=== PATIENT | female | born 2005 | race Caucasian/White ===

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

== ENCOUNTER 2023-01-22 02:43 | Emergency (ER) | payer OTHER, SELFPAY ==
--- NOTE | ~2023-01-22 | XR_ITS ---
EXAMINATION: XR chest 1V portable 01/22/2023 03:22 INDICATION: Left-sided chest pain PROCEDURE: AP portable chest COMPARISON: Comparison to multiple prior studies sequentially, with oldest reviewed study dated 08/23. FINDINGS: The lungs are clear. The cardiomediastinal silhouette is within normal limits. There are no pleural effusions. There is no pneumothorax suspected. IMPRESSION: 1: NO ACUTE CARDIOPULMONARY DISEASE. Reviewed, dictated and finalized at location A.
[2023-01-22 02:45] VITALS: TEMP 37.1
[2023-01-22 02:56] VITALS: BP 178/84; PULSE 84; PULSE 87; RESP 14; TEMP 37.1; O2SAT 100
--- NOTE | 2023-01-22 03:01 | ECG_ITS ---
Measurements Intervals [place] Rate: 82 P: 34 [place]: 179 QRS: 106 QRSD: 101 T: 56 QT: 345 QTc: 405 Interpretive Statements SINUS RHYTHM MINOR RV CONDUCTION ABNORMALITY BORDERLINE ECG COMPARED TO ECG 09/14/2022 09:39:11 NO SIGNIFICANT CHANGE Electronically Signed On 01-22-2023 8:29:13 CDT by Olegario Nogueira M.D.
--- NOTE | 2023-01-22 04:14 | ED.GENADULT ---
HPI - General Adult General Chief complaint: Chest Pain Stated complaint: CP AND ARM NUMBNESS Time Seen by Provider: 01/22/23 02:50 History of Present Illness HPI narrative: Patient is a 17-year-old female who presents the emergency department with chief complaint of chest pain patient reports that she is with feeling flushed dizziness and feeling anxious the patient states start about 15 minutes prior to arrival reports that she has history of POTS anxiety and has history of low iron. Patient states that she took her lorazepam this evening but did not have any improvement in her symptoms prior to arrival. Related Data Home Medications Medication Instructions Recorded Confirmed lorazepam 0.5 mg tablet 0.5 mg PO DAILY PRN Anxiety 09/15/22 09/29/22 Allergies Allergy/AdvReac Type Severity Reaction Status Date / Time latex Allergy Unknown RASH Verified 01/22/23 02:55 Review of Systems Review of Systems: A 10 system review of systems was completed on the patient and is negative except for what is stated in the HPI. Nursing and ancillary documentation was reviewed. PMFSH Past Medical History Medical History Anxiety 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 Surgical History Surgical History Delivery by section (04/27/22) primary c/s Arrest of Descent History of tonsillectomy age 6/7 Family History Family History Grandparent Diabetes mellitus both grandmothers Cerebrovascular accident paternal grandfather Carcinoma of colon maternal grandmother Hypertension maternal grandmother Sibling Asthma Social History Social History Smoking packs per day: 0.1 Smoking cigarettes per day: 2.0 Years smoked: 5 Smoking pack-years: 0.50 Smoking status: Current every day smoker Tobacco type: e-cigarettes/vaping Second hand tobacco smoke exposure: Yes Smoking end date: 05/04/21 Alcohol intake: current Drinks per week: 0 Substance use: never Substance use type: does not use Lack of Transportation: No Lack of Food: Never True Current Housing: Decline to Answer Concerned About Future Housing: No Difficulty Paying Gas/Electric Bills: No Difficulty Paying for Meds: No Currently Unemployed: No Education: Grade School Difficulty w/ Childcare or Family Care: No Living arrangements: other Additional living arrangements comments: Occupation/Education: occupation 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 HEAD: Normocephalic, atraumatic. EYES: PERRLA and EOMI. ENT: Nares clear, no rhinorrhea or epistaxis. Mucous membranes moist. NECK: Supple. CHEST: Clear to auscultation. No respiratory distress. HEART: Regular rate and rhythm. No murmur heard. Normal peripheral pulses. ABDOMEN: Soft, nontender, nondistended, normal active bowel sounds. EXTREMITIES: Normal range of motion. No edema. SKIN: Warm, dry, no rash. NEURO: No focal deficits. Alert and oriented x3. PSYCH: Normal mood and affect. Course Vital Signs Vital signs: Vital Signs Temperature 37.1 C 01/22/23 02:45 Temperature 37.1 C 01/22/23 02:56 Pulse Rate 66 01/22/23 04:40 Respiratory Rate 20 01/22/23 04:40 Blood Pressure 148/74 H 01/22/23 04:40 Pulse Oximetry 97 01/22/23 04:40 Medical Decision Making MDM Narrative Medical decision making narrative: Differential diagnosis includes PE, ACS, e
[2023-01-22 04:21] LABS: Basophils Percent Auto 0.4 % (0.2-1.2); Eosinophils Absolute Auto 0.1 K/mm3 (0-0.3); Eosinophils Percent Auto 0.6 % (0-4.4); Hematocrit 38.5 % (37.0-47.0); Hemoglobin 11.3 g/dL (12.0-15.0); Immature Granulocyte Absolute 0.03 K/mm3 (0.00-0.031); Immature Granulocyte Percent A 0.4 % (0-0.5); Lymphocytes Absolute Auto 1.68 K/mm3 (0.9-3.2); Lymphocytes Percent Auto 21.2 % (18.3-44.2); Mean Corpuscular HGB Conc 29.4 g/dl (32-36); Mean Corpuscular Hemoglobin 23.3 pg (26-34); Mean Corpuscular Volume 79.2 fl (80-100); Mean Platelet Volume 9.7 fl (7.4-10.4); Monocytes Absolute Auto 0.6 K/mm3 (0.1-0.6); Monocytes Percent Auto 7.1 % (2.6-8.5); Neutrophils Absolute Auto 5.6 K/mm3 (1.3-6.7); Neutrophils Percent Auto 70.3 % (45.5-73.1); Platelet Count Result 306 k/mm3 (150-375); Red Blood Count 4.86 M/mm3 (4.2-5.4); Red Cell Distribution Width 15.6 % (11.5-14.5); White Blood Count 7.9 K/mm3 (4.5-10.0)
[2023-01-22 04:22] LABS: Appearance Urine Clear (Clear); Bilirubin Urine Negative (Negative); Blood Urine Negative (Negative); Color Urine Yellow (Yellow); Glucose Urine UA Negative (Negative); Ketones Urine Negative (Negative); Leukocyte Esterase Ur Negative LEU/UL (Negative); Nitrate Urine Negative (Negative); Protein Urine Negative (Negative); Specific Grav Ur 1.005 (1.001-1.035); Urobilinogen Urine 0.2 mg/dL (<2.0)
[2023-01-22 04:31] LABS: INR 0.9; Prothrombin Time 12.6 Seconds (11.1-14.7)
[2023-01-22 04:32] LABS: Partial Thromboplastin Time 29.9 SECONDS (22.3-36.8)
[2023-01-22 04:35] LABS: Add Urine Microscopic? NO; D Dimer 0.42 ug/mL (<0.48)
[2023-01-22 04:40] VITALS: BP 148/74; PULSE 66; RESP 20; O2SAT 97
[2023-01-22 04:42] LABS: Lactic Acid Reflex 1.8 mmol/L (0.7-2.0)
[2023-01-22 04:43] LABS: Alanine Aminotransferase 19 U/L (6-35); Albumin Level 4.3 g/dL (3.7-5.6); Alkaline Phosphatase 98 U/L (45-116); Anion Gap 10 mmol/L (8-16); Aspartate Amino Transferase 20 U/L (14-36); Bilirubin,Total 0.5 mg/dL (0.2-1.3); Blood Urea Nitrogen 11 mg/dL (8-21); Calcium 9.1 mg/dL (8.9-10.7); Carbon Dioxide 25 mmol/L (22-30); Chloride 105 mmol/L (98-107); Estimated CRCL calculation 184 ml/min; Estimated Glomerular Filt Rate > 60; Glucose 115 mg/dL (65-110); Lipase 45 U/L (23-300); Magnesium 2.1 mg/dL (1.6-2.3); Potassium 3.5 mmol/L (3.4-5.0); Sodium 140 mmol/L (134-143)
[2023-01-22 04:50] LABS: Amphetamine Screen Urine Negative (Negative); Barbiturate Screen Urine Negative (Negative); Benzodiazepines Screen Urine Negative (Negative); Cannabinoid Screen Urine Negative (Negative); Cocaine Screen Urine Negative (Negative); Methadone Screen Urine Negative (Negative); Opiate Screen Urine Negative (Negative); Phencyclidine Screen Urine Negative (Negative)
[2023-01-22 04:55] LABS: Troponin I < 0.012 ng/mL (0.000-0.034)
[2023-01-22 05:42] VITALS: BP 147/86; PULSE 78; RESP 20; O2SAT 98
== END 2023-01-22 05:41 | disposition home or self-care (01) ==
PROVIDERS: Emergency Provider Emergency Medicine; PCP Family Medicine
DX: R07.89 Other chest pain (principal); R42 Dizziness and giddiness; R55 Syncope and collapse; F41.9 Anxiety disorder, unspecified; A18.01 Tuberculosis of spine; Z87.891 Personal history of nicotine dependence
CPT/HCPCS: 36415; 71045; 80053; 80307; 81003; 81025; 83605; 83690; 83735; 84484; 85025; 85380; 85610; 85730; 93005; 99284

== ENCOUNTER 2023-06-11 14:56 | Emergency (ER) | payer OTHER, SELFPAY ==
[2023-06-11 15:02] VITALS: BP 144/67; PULSE 91; RESP 20; TEMP 37.4; O2SAT 100
--- NOTE | 2023-06-11 15:28 | ED.URI ---
HPI - URI/Sore Throat General Chief Complaint: Upper Respiratory Infection Stated Complaint: cough/throat Time Seen by Provider: 06/11/23 15:29 Source: patient, RN notes reviewed and old records reviewed Mode of arrival: ambulatory Limitations: no limitations History of Present Illness HPI Narrative: 18 year old female presents to [facility] care with complaints of 2 week history of sore throat, dry cough, post nasal drainage that won't go away. Patient reports that she has taken Mucinex and flu medications along with throat numbing spray. Patient reports that she has had intermittent low grade fevers, Patient reports that cough is getting worse at night, is dry and hacky. Patient reports some sinus pressure denies any headache, body aches or any ear pain. MD elicited complaint: fever (low grade), cough, sore throat, rhinorrhea and nasal congestion Pertinent past history: sinusitis Onset (ago): week(s) (2) Severity: moderate Able to tolerate fluids by mouth: Yes Treatments prior to arrival: other (Mucinex, flu med, throat numbing spray.) Related Data Home Medications Medication Instructions Recorded Confirmed citalopram 20 mg tablet 20 mg PO DAILY 06/11/23 06/11/23 lorazepam 0.5 mg tablet 0.5 mg PO BID PRN Anxiety 06/11/23 06/11/23 Allergies Allergy/AdvReac Type Severity Reaction Status Date / Time latex Allergy Unknown RASH Verified 06/11/23 15:23 Review of Systems Review of Systems: CONSTITUTIONAL: Denies malaise, chills, sweats,positive for low grade fever. EYES: Denies visual changes, redness, or discharge. ENT: Reports rhinorrhea, congestion, sinus pain, no otalgia and positive for sore throat. CARDIOVASCULAR: Denies chest pain, palpitations, or edema. RESPIRATORY: Reports cough.? Denies dyspnea. GASTROINTESTINAL: Denies abdominal pain, nausea, vomiting, diarrhea SKIN: Denies rash or itching. MUSCULOSKELETAL: Denies myalgia. NEUROLOGIC: Denies headache. All systems reviewed & are unremarkable except as noted in HPI and below PMFSH Past Medical History Medical History Anxiety 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 Surgical History Surgical History Delivery by section (04/27/22) primary c/s Arrest of Descent History of tonsillectomy age 6/7 Family History Family History Grandparent Diabetes mellitus both grandmothers Cerebrovascular accident paternal grandfather Carcinoma of colon maternal grandmother Hypertension maternal grandmother Sibling Asthma Social History Social History (Updated 06/12/23 @ 15:07 by Erendira Perez NP) Smoking packs per day: 0.1 Smoking cigarettes per day: 2.0 Years smoked: 5 Smoking pack-years: 0.50 Smoking status: Former smoker Tobacco type: e-cigarettes/vaping Second hand tobacco smoke exposure: Yes Smoking end date: 05/04/21 Alcohol intake: current Drinks per week: 0 Substance use: never Substance use type: does not use Lack of Transportation: No Lack of Food: Never True Current Housing: Decline to Answer Concerned About Future Housing: No Difficulty Paying Gas/Electric Bills: No Difficulty Paying for Meds: No Currently Unemployed: No Education: Grade School Difficulty w/ Childcare or Family Care: No Living arrangements: other Additional living arrangements comments: Occupation/Education: occupation 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 There is no rele
== END 2023-06-11 15:45 | disposition home or self-care (01) ==
PROVIDERS: Emergency Provider Registered Nurse; PCP Family Medicine
DX: J32.9 Chronic sinusitis, unspecified (principal); F41.9 Anxiety disorder, unspecified
CPT/HCPCS: 87081; 87880; 99213; G0463

== ENCOUNTER 2023-08-08 18:28 | Emergency (ER) | payer OTHER, SELFPAY ==
[2023-08-08 18:28] VITALS: BP 147/79; PULSE 90; RESP 18; TEMP 36.1; O2SAT 99
--- NOTE | 2023-08-08 18:29 | ED.FEMALEGU ---
HPI - Female Genitourinary General Chief complaint: Urogenital-Female Stated complaint: Vaginal Bleeding Time Seen by Provider: 08/08/23 18:29 Source: patient Mode of arrival: ambulatory Limitations: no limitations History of Present Illness HPI Narrative: Patient is a 18-year-old female with bright red blood per vagina after intercourse yesterday and today. She has some tenderness of the vagina since intercourse. She also has some suprapubic discomfort. She is not due for her menstrual cycle at this time. elicited complaint: vaginal bleeding Onset (ago): day(s) (2) Location of symptoms: suprapubic Severity: mild Female Urogenital Radiation: Non-Radiating Severity scale (1-10): 2 Quality of pain: cramping Consistency: intermittent Vaginal discharge: none Vaginal bleeding: moderate, heavy and bright red Exacerbating factors: other ( Started with intercourse) Relieving factors: none Associated symptoms: denies other symptoms Treatment prior to arrival: none Sexual activity: Yes and New Sexual Partners Possible : unsure if Related Data Home Medications Medication Instructions Recorded Confirmed citalopram 20 mg tablet 20 mg PO DAILY 06/11/23 08/08/23 lorazepam 0.5 mg tablet 0.5 mg PO BID PRN Anxiety 06/11/23 08/08/23 Allergies Allergy/AdvReac Type Severity Reaction Status Date / Time latex Allergy Unknown RASH Verified 08/08/23 18:33 Review of Systems Review of Systems: All systems reviewed & are unremarkable except as noted in HPI and below Constitutional: Constitutional: Reports no additional constitutional complaints Eyes: Eyes: Reports no additional eye complaints ENT: Reports system reviewed and no additional complaints, except as documented Cardiovascular: Cardiovascular: Reports no additional cardiovascular complaints Respiratory: Respiratory: Reports no additional respiratory complaints Gastrointestinal: Gastrointestinal: Reports no additional gastrointestinal complaints Genitourinary: Genitourinary: Reports no additional female genitourinary complaints Musculoskeletal: Musculoskeletal: Reports no additional musculoskeletal complaints Integumentary/Breasts: Skin/Breast: Reports system reviewed and no additional complaints, except as docu Neurologic: Reports system reviewed and no additional complaints, except as documented Psychiatric: Psychiatric: Reports no additional psychiatric complaints Endocrine: Endocrine: Reports no additional endocrine complaints Hematologic/Lymphatic: Hematologic/Lymphatic: Reports no additional hematologic/lymphatic complaints Allergic/Immunologic: Allergic/Immunologic: Reports no additional allergic/immunologic complaints PMFSH Past Medical History Medical History Anxiety 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 Surgical History Surgical History Delivery by section (04/27/22) primary c/s Arrest of Descent History of tonsillectomy age 6/7 Family History Family History Grandparent Diabetes mellitus both grandmothers Cerebrovascular accident paternal grandfather Carcinoma of colon maternal grandmother Hypertension maternal grandmother Sibling Asthma Social History Social History Smoking packs per day: 0.1 Smoking cigarettes per day: 2.0 Years smoked: 5 Smoking pack-years: 0.50 Smoking status: Former smoker Tobacco type: e-cigarettes/vaping Second hand tobacco smoke exposure: Yes Smoking end date: 05/04/21 Alcohol intake: current Drinks per week: 0 Substance use: never Substance use type: does not use Lack of Transportation: No Lack of Food: Never True Current Housing: Decline to Answer Concerned About Future Cindy
[2023-08-08 19:13] LABS: Appearance Urine Sl Cloudy (Clear); Bilirubin Urine 1+ (Negative); Blood Urine 3+ (Negative); Color Urine Yellow (Yellow); Glucose Urine UA Negative (Negative); Ketones Urine 1+ (Negative); Leukocyte Esterase Ur Trace LEU/UL (Negative); Nitrate Urine Negative (Negative); Protein Urine Trace (Negative); Specific Grav Ur 1.025 (1.010-1.020)
--- NOTE | 2023-08-08 19:13 | PC.NURSE ---
report from arline salgado. introduced self to pt. no needs at this time. awaiting lab/urine results . call hebert in reach
[2023-08-08 19:19] LABS: Add Urine Microscopic? YES; Bacteria Urine 1+ /hpf; Pregnancy On Board Control Positive; RBC Urine >75 /hpf (0-2); Squamous Epithelial Cell Urine Few /hpf (Few); Urine Pregnancy Test Negative
[2023-08-08] MEDS: CEPHALEXIN 500 MG CAPSULE PO (19:55)
[2023-08-08 19:56] VITALS: BP 130/92; PULSE 84; RESP 20; TEMP 36.9; O2SAT 95
[2023-08-10 08:45] LABS: Chlamydia trachomatis NOT DETECTED (NOT DETECTE); Neisseria gonorrhoeae PCR NOT DETECTED (NOT DETECTE)
== END 2023-08-08 19:56 | disposition home or self-care (01) ==
PROVIDERS: Emergency Provider Emergency Medicine; PCP Family Medicine
DX: N30.01 Acute cystitis with hematuria (principal); F41.9 Anxiety disorder, unspecified; Z87.891 Personal history of nicotine dependence
CPT/HCPCS: 81001; 81025; 87491; 87591; 99283; A9270

== ENCOUNTER 2023-08-29 08:06 | Emergency (ER) | payer OTHER, SELFPAY ==
[2023-08-29 08:06] VITALS: BP 138/84; PULSE 77; RESP 16; TEMP 36.4; O2SAT 100
--- NOTE | 2023-08-29 08:12 | ED.URI ---
HPI - URI/Sore Throat General Chief Complaint: Upper Respiratory Infection Stated Complaint: sore throat Time Seen by Provider: 08/29/23 08:11 Source: patient Mode of arrival: ambulatory Limitations: no limitations History of Present Illness HPI Narrative: Patient is a 18-year-old female with a sore throat for the past 2 days. She said she is having difficulty swallowing due to the pain. No fever or chills. MD elicited complaint: sore throat Pertinent past history: other ( Recurrent strep throat) Onset (ago): day(s) (2) Consistency: constant Severity: moderate Pain scale (0-10): 6 Description of mucous: clear and yellow Able to tolerate fluids by mouth: Yes Exacerbating factors: nothing Relieving factors: nothing Associated symptoms: denies other symptoms Treatments prior to arrival: none Related Data Home Medications Medication Instructions Recorded Confirmed citalopram 20 mg tablet 20 mg PO DAILY 06/11/23 08/29/23 lorazepam 0.5 mg tablet 0.5 mg PO BID PRN Anxiety 06/11/23 08/29/23 Allergies Allergy/AdvReac Type Severity Reaction Status Date / Time latex Allergy Unknown RASH Verified 08/29/23 08:10 Review of Systems Review of Systems: All systems reviewed & are unremarkable except as noted in HPI and below Constitutional: Constitutional: Reports no additional constitutional complaints Eyes: Eyes: Reports no additional eye complaints ENT: Reports system reviewed and no additional complaints, except as documented Cardiovascular: Cardiovascular: Reports no additional cardiovascular complaints Respiratory: Respiratory: Reports no additional respiratory complaints Gastrointestinal: Gastrointestinal: Reports no additional gastrointestinal complaints Genitourinary: Genitourinary: Reports no additional female genitourinary complaints Musculoskeletal: Musculoskeletal: Reports no additional musculoskeletal complaints Integumentary/Breasts: Skin/Breast: Reports system reviewed and no additional complaints, except as docu Neurologic: Reports system reviewed and no additional complaints, except as documented Psychiatric: Psychiatric: Reports no additional psychiatric complaints Endocrine: Endocrine: Reports no additional endocrine complaints Hematologic/Lymphatic: Hematologic/Lymphatic: Reports no additional hematologic/lymphatic complaints Allergic/Immunologic: Allergic/Immunologic: Reports no additional allergic/immunologic complaints PMFSH Past Medical History Medical History Anxiety 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 Surgical History Surgical History Delivery by section (04/27/22) primary c/s Arrest of Descent History of tonsillectomy age 6/7 Family History Family History Grandparent Diabetes mellitus both grandmothers Cerebrovascular accident paternal grandfather Carcinoma of colon maternal grandmother Hypertension maternal grandmother Sibling Asthma Social History Social History Smoking packs per day: 0.1 Smoking cigarettes per day: 2.0 Years smoked: 5 Smoking pack-years: 0.50 Smoking status: Former smoker Tobacco type: e-cigarettes/vaping Second hand tobacco smoke exposure: Yes Smoking end date: 05/04/21 Alcohol intake: current Drinks per week: 0 Substance use: never Substance use type: does not use Lack of Transportation: No Lack of Food: Never True Current Housing: Decline to Answer Concerned About Future Housing: No Difficulty Paying Gas/Electric Bills: No Difficulty Paying for Meds: No Currently Unemployed: No Education: Grade School Difficulty w/ Childcare or Family Care: No Living arrangements: other Additional living arrangements comments: mar
[2023-08-29 08:26] LABS: Appearance Urine Sl Cloudy (Clear); Bilirubin Urine Negative (Negative); Blood Urine Negative (Negative); Color Urine Light Yellow (Yellow); Glucose Urine UA Negative (Negative); Ketones Urine Negative (Negative); Leukocyte Esterase Ur Trace LEU/UL (Negative); Nitrate Urine Negative (Negative); Protein Urine Negative (Negative); Specific Grav Ur 1.015 (1.010-1.020); Urobilinogen Urine 0.2 mg/dL (0.2-1.0)
[2023-08-29 08:31] LABS: Add Urine Microscopic? YES; Bacteria Urine Trace /hpf; RBC Urine None seen /hpf (0-2); Squamous Epithelial Cell Urine Few /hpf (Few); WBC Urine 0-3 /hpf (0-3)
[2023-08-29 08:32] LABS: Pregnancy On Board Control Positive; Urine Pregnancy Test Negative
[2023-08-29 08:42] LABS: Strep Group A RT-PCR NOT DETECTED (Negative)
== END 2023-08-29 08:55 | disposition home or self-care (01) ==
LOC: CHSED 08:53
PROVIDERS: Emergency Provider Emergency Medicine; PCP Family Medicine
DX: J02.8 Acute pharyngitis due to other specified organisms (principal); F41.9 Anxiety disorder, unspecified; Z87.891 Personal history of nicotine dependence
CPT/HCPCS: 81001; 81025; 87651; 99283

== ENCOUNTER 2023-09-21 19:54 | Emergency (ER) | payer OTHER, SELFPAY ==
--- NOTE | ~2023-09-21 | CT_ITS ---
EXAMINATION: CT abdomen pelvis w con DATE: 09/21/2023 21:30 INDICATION: Abdominal pain TECHNIQUE: Computed tomography (CT) of the abdomen and pelvis was performed without intravenous contr ast. Automated exposure control and iterative reconstruction technique were employed. The dose-length product was 1679.64 mGy-cm. COMPARISON: 09/14/2022 FINDINGS: No interval change in likely benign 3 mm nodule in the right lower lobe. Heart size is normal. No per icardial or pleural effusion. Liver, gallbladder, spleen, pancreas, bilateral adrenal glands and kidn eys are normal. Bladder, anteverted uterus and bilateral adnexa are unremarkable. Unchanged fatty inf iltration of the wall of the rectum which could be related to body habitus or sequela of chronic infl ammation. Bowels are otherwise unremarkable including a normal appendix. No free intraperitoneal gas or fluid. No pathologically enlarged abdominal or pelvic lymphadenopathy. Chronic mild anterior wedgi ng at T11-L1. Mild to moderate spondylosis and several Schmorl's nodes in the lower thoracic and uppe r lumbar spine. IMPRESSION: 1. No acute intra-abdominal/pelvic process. Reviewed, dictated and finalized at location A.
[2023-09-21 20:00] VITALS: BP 153/99; PULSE 78; RESP 18; TEMP 36.8; O2SAT 100
--- NOTE | 2023-09-21 20:01 | ECG_ITS ---
Test Date: 2023-09-21 20:18:37 Measurements Intervals [place] Rate: 75 P: 48 [place]: 156 QRS: 104 QRSD: 94 T: 64 QT: 357 QTc: 401 Interpretive Statements SINUS RHYTHM RIGHT AXIS DEVIATION [QRS AXIS > 100] LOW QRS VOLTAGE IN PRECORDIAL LEADS [QRS DEFLECTION < 1.0 mV IN CHEST LEADS] ABNORMAL ECG No previous ECG available for comparison Electronically Signed On 09-22-2023 11:02:49 CDT by Trey Saucedo M.D.
--- NOTE | 2023-09-21 20:05 | ED.ABDPAIN ---
HPI - Abdominal Pain General Chief Complaint: Abdominal Pain Stated Complaint: Upper Abd Pain Time Seen by Provider: 09/21/23 20:00 Source: patient Mode of arrival: ambulatory Limitations: no limitations History of Present Illness HPI narrative: this is a 18-year-old female with having pain for the last week off and on crampy with some nausea currently no vomiting no fever chills no chest pain shortness of breath. Patient states she has a history of IBS and there was no hematochezia no flank pain denies dysuria or hematuria MD elicited complaint: abdominal pain Pertinent past history: none Onset (ago): week(s) Pain Consistency: intermittent Location: periumbilical Severity: mild Quality: cramping Associated symptoms: nausea Related Data Home Medications Medication Instructions Recorded Confirmed citalopram 20 mg tablet 20 mg PO DAILY 06/11/23 09/21/23 lorazepam 0.5 mg tablet 0.5 mg PO BID PRN Anxiety 06/11/23 09/21/23 Allergies Allergy/AdvReac Type Severity Reaction Status Date / Time latex Allergy Unknown RASH Verified 08/29/23 08:10 Review of Systems Review of Systems: All systems reviewed & are unremarkable except as noted in HPI and below PMFSH Past Medical History Medical History Anxiety 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 Surgical History Surgical History Delivery by section (04/27/22) primary c/s Arrest of Descent History of tonsillectomy age 6/7 Family History Family History Grandparent Diabetes mellitus both grandmothers Cerebrovascular accident paternal grandfather Carcinoma of colon maternal grandmother Hypertension maternal grandmother Sibling Asthma Social History Social History Smoking packs per day: 0.1 Smoking cigarettes per day: 2.0 Years smoked: 5 Smoking pack-years: 0.50 Smoking status: Former smoker Tobacco type: e-cigarettes/vaping Second hand tobacco smoke exposure: Yes Smoking end date: 05/04/21 Alcohol intake: current Drinks per week: 0 Substance use: never Substance use type: does not use Lack of Transportation: No Lack of Food: Never True Current Housing: Decline to Answer Concerned About Future Housing: No Difficulty Paying Gas/Electric Bills: No Difficulty Paying for Meds: No Currently Unemployed: No Education: Grade School Difficulty w/ Childcare or Family Care: No Living arrangements: other Additional living arrangements comments: Occupation/Education: occupation 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 Gender identity (if verbalized by the patient): Female Sexual Orientation (if Verbalized by the Patient): Straight or Heterosexual Spiritual care concerns: No Exam Const: General: healthy appearing Nutritional Appearance: well nourished Orientation/consciousness: patient oriented x3 Limitations: no limitations Chest: Chest palpation & inspection: normal inspection of the chest Resp: Effort & Inspection: normal respiratory effort Auscultation: clear to auscultation bilaterally Cardio: Rate: regular rate Rhythm: regular rhythm GI: GI Palp: Yes Soft to palpation and Yes Tenderness to palpation present (GI) Auscultation: normal bowel sounds : General: Yes bladder normal to palpation Skin: General skin exam: normal color Rashes: no rashes Wounds: no wounds Neuro: General: patient oriented x3 Cranial nerves: Yes Nystagmus not present Course Course Emergency Course: CT scan shows no acute intra-abdominal abnormality urine reviewed normal patient received IV fluids and IV Pepcid. Critical Care Time Critical Care Time Critical Care Time: No Discharge Plan Dischar
[2023-09-21 20:21] LABS: Appearance Urine Clear (Clear); Basophils Absolute Auto 0.03 K/mm3 (0.00-0.10); Basophils Percent Auto 0.3 % (0.0-1.0); Bilirubin Urine Negative (Negative); Blood Urine Negative (Negative); Color Urine Light Yellow (Yellow); Eosinophils Absolute Auto 0.09 K/mm3 (0.02-0.50); Eosinophils Percent Auto 0.9 % (1.0-6.0); Glucose Urine UA Negative (Negative); Hematocrit 40.4 % (35.0-49.0); Hemoglobin 12.5 g/dL (12.0-15.0); Immature Granulocyte Absolute 0.04 K/mm3 (0.00-0.00); Immature Granulocyte Percent A 0.4 % (0.0-0.0); Ketones Urine Negative (Negative); Leukocyte Esterase Ur Negative LEU/UL (Negative); Lymphocytes Absolute Auto 3.68 K/mm3 (1.10-4.50); Lymphocytes Percent Auto 38.3 % (18.0-42.0); Mean Corpuscular HGB Conc 30.9 g/dL (32-36); Mean Corpuscular Hemoglobin 25.6 pg (27.0-31.0); Mean Corpuscular Volume 82.6 fL (78.0-102.0); Mean Platelet Volume 9.1 fl (9.2-11.8); Monocytes Absolute Auto 0.45 K/mm3 (0.10-0.90); Monocytes Percent Auto 4.7 % (2.0-11.0); Neutrophils Absolute Auto 5.31 K/mm3 (1.70-7.20); Neutrophils Percent Auto 55.4 % (50.0-70.0); Nitrate Urine Negative (Negative); Platelet Count Result 295 K/mm3 (150-420); Protein Urine Negative (Negative); Red Blood Count 4.89 M/mm3 (4.20-5.40); Red Cell Distribution Width 16.7 % (11.6-14.4); Specific Grav Ur 1.015 (1.010-1.020); White Blood Count 9.6 K/mm3 (4.8-10.8)
[2023-09-21 20:25] LABS: Add Urine Microscopic? NO
[2023-09-21 20:26] LABS: Pregnancy On Board Control Positive; Urine Pregnancy Test Negative
--- NOTE | 2023-09-21 20:30 | PC.NURSE ---
this rn attempted IV line without success. asked Alisa RN to place IV line
[2023-09-21 20:35] LABS: INR 0.9; Partial Thromboplastin Time 26.4 Sec (23.9-30.70); Prothrombin Time 10.1 Seconds (9.50-12.1)
[2023-09-21 20:36] LABS: Alanine Aminotransferase 16 U/L (14-59); Albumin Level 3.5 g/dL (3.4-5.0); Alkaline Phosphatase 98 U/L (46-116); Anion Gap 9 mmol/L (4-12); Aspartate Amino Transferase 11 U/L (15-37); Bilirubin,Total 0.3 mg/dL (0.00-1.00); Blood Urea Nitrogen 9 mg/dL (7-18); Calcium 8.6 mg/dL (8.5-10.1); Carbon Dioxide 28 mmol/L (21-32); Chloride 103 mmol/L (98-108); Estimated CRCL calculation 154 ml/min; Estimated Glomerular Filt Rate > 60; Glucose 90 mg/dL (70-99); Lipase 34 U/L (16-77); Osmolality Calculated 288 mOsm/kg (285-295); Potassium 3.6 mmol/L (3.5-5.1); Sodium 140 mmol/L (136-145); Total Protein 7.3 g/dL (6.4-8.2)
[2023-09-21] MEDS: SODIUM CHLORIDE 0.9% IV 1,000 ML 999 ML IV CONT (20:39)
[2023-09-21] MEDS: ONDANSETRON INJ 4 MG/2 ML VIAL IV PUSH (20:39)
[2023-09-21] MEDS: FAMOTIDINE 20 MG/2 ML VIAL IV PUSH (20:39)
[2023-09-21 20:43] LABS: Lactic Acid Reflex 1.2 mmol/L (0.4-2.0)
--- NOTE | 2023-09-21 21:02 | PC.NURSE ---
notified radiology that blood work has been completed. patient is ready for imaging.
--- NOTE | 2023-09-21 21:12 | PC.NURSE ---
patient transported to ct via wheel chair
--- NOTE | 2023-09-21 21:23 | PC.NURSE ---
returned from ct via wheel chair
--- NOTE | 2023-09-21 21:32 | PC.NURSE ---
patient ambulated down to the bathroom and back to room. no vomiting or bloody stool while patient has been here
[2023-09-21 22:02] VITALS: BP 135/87; PULSE 75; RESP 18; O2SAT 100
--- NOTE | 2023-09-28 12:56 | PC.NURSE ---
Final blood culture report, No growth after 5 days, no further action or treatment needed.
== END 2023-09-21 22:02 | disposition home or self-care (01) ==
PROVIDERS: Emergency Provider Emergency Medicine; PCP Family Medicine
DX: R10.10 Upper abdominal pain, unspecified (principal); Z87.891 Personal history of nicotine dependence
CPT/HCPCS: 36415; 74177; 80053; 81003; 81025; 83605; 83690; 85025; 85610; 85730; 87040; 93005; 96361; 96374; 96375; 99284; J2405; J7030; Q9967

== ENCOUNTER 2023-11-02 03:49 | Emergency (ER) | payer OTHER, SELFPAY ==
[2023-11-02 03:50] VITALS: BP 144/94; PULSE 84; RESP 16; TEMP 36.2; O2SAT 96
--- NOTE | 2023-11-02 03:52 | ED.URI ---
HPI - URI/Sore Throat General Chief Complaint: Upper Respiratory Infection Stated Complaint: sore throat Time Seen by Provider: 11/02/23 03:51 Source: patient Mode of arrival: ambulatory Limitations: no limitations History of Present Illness HPI Narrative: 18-year-old female presents to the ED with a one-week history of -- sore throat. patient had a history of tonsillectomy. -- Sinus pain -- cough productive of mucopurulent sputum no chest pain or shortness of breath. No fever or chills MD elicited complaint: cough and sore throat Onset (ago): day(s) ( Seven days) Consistency: constant Severity: mild Able to tolerate fluids by mouth: Yes Exacerbating factors: nothing Relieving factors: nothing Associated symptoms: denies other symptoms, sore throat and cough Treatments prior to arrival: none Related Data Home Medications Medication Instructions Recorded Confirmed citalopram 20 mg tablet 40 mg PO DAILY 06/11/23 11/02/23 lorazepam 0.5 mg tablet 0.5 mg PO BID PRN Anxiety 06/11/23 11/02/23 aripiprazole 5 mg tablet (Abilify) 5 mg PO HS 11/02/23 11/02/23 omeprazole 40 mg capsule,delayed 40 mg PO DAILY 11/02/23 11/02/23 release Allergies Allergy/AdvReac Type Severity Reaction Status Date / Time latex Allergy Unknown RASH Verified 08/29/23 08:10 Review of Systems Review of Systems: All systems reviewed & are unremarkable except as noted in HPI and below Constitutional: Constitutional: Reports as per HPI and Reports no additional constitutional complaints Eyes: Eyes: Reports as per HPI and Reports no additional eye complaints ENT: Reports system reviewed and no additional complaints, except as documented and Reports sore throat Cardiovascular: Cardiovascular: Reports as per HPI and Reports no additional cardiovascular complaints Respiratory: Respiratory: Reports as per HPI and Reports no additional respiratory complaints Gastrointestinal: Gastrointestinal: Reports as per HPI and Reports no additional gastrointestinal complaints Genitourinary: Genitourinary: Reports no additional female genitourinary complaints and Reports as per HPI Musculoskeletal: Musculoskeletal: Reports no additional musculoskeletal complaints and Reports as per HPI Integumentary/Breasts: Skin/Breast: Reports system reviewed and no additional complaints, except as docu and Reports as per HPI Neurologic: Reports system reviewed and no additional complaints, except as documented and Reports as per HPI Psychiatric: Psychiatric: Reports no additional psychiatric complaints and Reports as per HPI Endocrine: Endocrine: Reports no additional endocrine complaints and Reports as per HPI Hematologic/Lymphatic: Hematologic/Lymphatic: Reports no additional hematologic/lymphatic complaints and Reports as per HPI Allergic/Immunologic: Allergic/Immunologic: Reports no additional allergic/immunologic complaints and Reports as per HPI [facility] Past Medical History Medical History Anxiety 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 Surgical History Surgical History Delivery by section (04/27/22) primary c/s Arrest of Descent History of tonsillectomy age 6/7 Family History Family History Grandparent Diabetes mellitus both grandmothers Cerebrovascular accident paternal grandfather Carcinoma of colon maternal grandmother Hypertension maternal grandmother Sibling Asthma Social History Social History Smoking packs per day: 0.1 Smoking cigarettes per day: 2.0 Years smoked: 5 Smoking pack-years: 0.50 Smoking status: Former smoker Tobacco type: e-cigarettes/vaping Second hand tobacco smoke exposure: Yes Smoking end date: 05/04/21 Alcohol intake:
[2023-11-02 03:53] VITALS: O2SAT 100
[2023-11-02 04:41] LABS: SARS-CoV-2 RNA PCR Negative (Negative)
[2023-11-02 04:45] LABS: Influenza A QL RT-PCR Negative (Negative); Influenza B QL RT-PCR Negative (Negative); RSV RNA, RT-PCR Negative (Negative); Strep Group A RT-PCR NOT DETECTED (Negative)
[2023-11-02 04:55] VITALS: BP 138/67; PULSE 80; RESP 20; TEMP 36.6; O2SAT 98
== END 2023-11-02 04:55 | disposition home or self-care (01) ==
PROVIDERS: Emergency Provider Internal Medicine Critical Care Medicine; PCP Family Medicine
DX: J06.9 Acute upper respiratory infection, unspecified (principal); Z79.899 Other long term (current) drug therapy; Z87.891 Personal history of nicotine dependence; Z20.822 Contact with and (suspected) exposure to COVID-19
CPT/HCPCS: 87637; 87651; 99283

== ENCOUNTER 2023-11-03 07:44 | Emergency (ER) | payer OTHER, SELFPAY ==
[2023-11-03 07:45] VITALS: BP 127/78; PULSE 102; RESP 20; TEMP 36.6; O2SAT 95
--- NOTE | 2023-11-03 07:45 | ED.URI ---
HPI - URI/Sore Throat General Chief Complaint: Upper Respiratory Infection Stated Complaint: sore throat Time Seen by Provider: 11/03/23 07:45 Source: patient Mode of arrival: ambulatory Limitations: no limitations History of Present Illness HPI Narrative: Patient is a 18-year-old female with a sore throat and difficulty swallowing. She came to the ER a day ago and was sent home with a viral syndrome and no antibiotics. She is here for recurrent and unresolved symptoms. She was tested for strep and COVID triple screen which were all negative. MD elicited complaint: sore throat Onset (ago): week(s) (1) Consistency: constant Severity: moderate Pain scale (0-10): 5 Description of mucous: clear Able to tolerate fluids by mouth: Yes Exacerbating factors: nothing Relieving factors: nothing Associated symptoms: chills and sore throat Treatments prior to arrival: acetaminophen and ibuprofen Related Data Home Medications Medication Instructions Recorded Confirmed citalopram 20 mg tablet 40 mg PO DAILY 06/11/23 11/02/23 lorazepam 0.5 mg tablet 0.5 mg PO BID PRN Anxiety 06/11/23 11/02/23 aripiprazole 5 mg tablet (Abilify) 5 mg PO HS 11/02/23 11/02/23 omeprazole 40 mg capsule,delayed 40 mg PO DAILY 11/02/23 11/02/23 release Allergies Allergy/AdvReac Type Severity Reaction Status Date / Time latex Allergy Unknown RASH Verified 08/29/23 08:10 Review of Systems Review of Systems: All systems reviewed & are unremarkable except as noted in HPI and below Constitutional: Constitutional: Reports no additional constitutional complaints Eyes: Eyes: Reports no additional eye complaints ENT: Reports system reviewed and no additional complaints, except as documented Cardiovascular: Cardiovascular: Reports no additional cardiovascular complaints Respiratory: Respiratory: Reports no additional respiratory complaints Gastrointestinal: Gastrointestinal: Reports no additional gastrointestinal complaints Genitourinary: Genitourinary: Reports no additional female genitourinary complaints Musculoskeletal: Musculoskeletal: Reports no additional musculoskeletal complaints Integumentary/Breasts: Skin/Breast: Reports system reviewed and no additional complaints, except as docu Neurologic: Reports system reviewed and no additional complaints, except as documented Psychiatric: Psychiatric: Reports no additional psychiatric complaints Endocrine: Endocrine: Reports no additional endocrine complaints Hematologic/Lymphatic: Hematologic/Lymphatic: Reports no additional hematologic/lymphatic complaints Allergic/Immunologic: Allergic/Immunologic: Reports no additional allergic/immunologic complaints PMFSH Past Medical History Medical History Anxiety 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 Surgical History Surgical History Delivery by section (04/27/22) primary c/s Arrest of Descent History of tonsillectomy age 6/7 Family History Family History Grandparent Diabetes mellitus both grandmothers Cerebrovascular accident paternal grandfather Carcinoma of colon maternal grandmother Hypertension maternal grandmother Sibling Asthma Social History Social History Smoking packs per day: 0.1 Smoking cigarettes per day: 2.0 Years smoked: 5 Smoking pack-years: 0.50 Smoking status: Former smoker Tobacco type: e-cigarettes/vaping Second hand tobacco smoke exposure: Yes Smoking end date: 05/04/21 Alcohol intake: current Drinks per week: 0 Substance use: never Substance use type: does not use Lack of Transportation: No Lack of Food: Never True Current Housing: Decline to Answer Concerned About Future Housing: No Difficulty
== END 2023-11-03 08:03 | disposition home or self-care (01) ==
LOC: CHSED 08:16
PROVIDERS: Emergency Provider Emergency Medicine
DX: J02.8 Acute pharyngitis due to other specified organisms (principal); Z79.899 Other long term (current) drug therapy; Z87.891 Personal history of nicotine dependence
CPT/HCPCS: 99283

== ENCOUNTER 2024-02-04 18:45 | Emergency (ER) | payer OTHER, SELFPAY ==
[2024-02-04 18:57] VITALS: BP 133/83; PULSE 84; RESP 16; TEMP 37; O2SAT 99
--- NOTE | 2024-02-04 19:05 | ED.URI ---
HPI - URI/Sore Throat General Chief Complaint: Upper Respiratory Infection Stated Complaint: throat/cough/headache Time Seen by Provider: 02/04/24 19:06 Source: patient, RN notes reviewed and old records reviewed Mode of arrival: ambulatory Limitations: no limitations History of Present Illness HPI Narrative: 18 year old female who presents to [facility] care with complaints of sore throat, cough and headache, nasal congestion and drainage, and ear pain. Patient reports that she has had 2 weeks of sinus congestion and drainage and sore throat and has has 1 month of earache. Patient reports that boyfriend tested positive to strep. Patient reports that she has not taken any OTC medications, has no money to buy any. MD elicited complaint: cough, sore throat, rhinorrhea, nasal congestion and other (headache and earaches) Onset (ago): week(s) (2 weeks sore throat and sinus drainage, 1 month earaches.) Pain scale (0-10): 4 Able to tolerate fluids by mouth: Yes Treatments prior to arrival: none Related Data Home Medications Medication Instructions Recorded Confirmed citalopram 20 mg tablet 40 mg PO DAILY 06/11/23 11/02/23 lorazepam 0.5 mg tablet 0.5 mg PO BID PRN Anxiety 06/11/23 11/02/23 aripiprazole 5 mg tablet (Abilify) 5 mg PO HS 11/02/23 11/02/23 omeprazole 40 mg capsule,delayed 40 mg PO DAILY 11/02/23 11/02/23 release metronidazole 500 mg tablet mg 02/04/24 Allergies Allergy/AdvReac Type Severity Reaction Status Date / Time latex Allergy Unknown RASH Verified 08/29/23 08:10 Review of Systems Review of Systems: CONSTITUTIONAL: Reports malaise, no chills, sweats, no known fevers EYES: Denies visual changes, redness, or discharge. ENT: Reports rhinorrhea, congestion, sinus pain,right otalgia and positive for sore throat. CARDIOVASCULAR: Denies chest pain, palpitations, or edema. RESPIRATORY: Reports no acute cough.? Denies dyspnea. GASTROINTESTINAL: Denies abdominal pain, nausea, vomiting, diarrhea SKIN: Denies rash or itching. MUSCULOSKELETAL: Denies myalgia. NEUROLOGIC: Reports headache. All systems reviewed & are unremarkable except as noted in HPI and below PMFSH Past Medical History Medical History Anxiety 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 Surgical History Surgical History Delivery by section (04/27/22) primary c/s Arrest of Descent History of tonsillectomy age 6/7 Family History Family History Grandparent Diabetes mellitus both grandmothers Cerebrovascular accident paternal grandfather Carcinoma of colon maternal grandmother Hypertension maternal grandmother Sibling Asthma Social History Social History Smoking packs per day: 0.1 Smoking cigarettes per day: 2.0 Years smoked: 5 Smoking pack-years: 0.50 Smoking status: Former smoker Tobacco type: e-cigarettes/vaping Second hand tobacco smoke exposure: Yes Smoking end date: 05/04/21 Alcohol intake: current Drinks per week: 0 Substance use: never Substance use type: does not use Lack of Transportation: No Lack of Food: Never True Current Housing: Decline to Answer Concerned About Future Housing: No Difficulty Paying Gas/Electric Bills: No Difficulty Paying for Meds: No Currently Unemployed: No Education: Grade School Difficulty w/ Childcare or Family Care: No Living arrangements: other Additional living arrangements comments: Occupation/Education: occupation 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 There is no relevant family history pertinent to the presenting complaint Exam Narrative: GENERAL: Well-appearing, well-nourished, obese,and in no acute distress. HEAD: Normocephalic EYES: PERRLA, conjunctivae clear ENT: Nares clear, turbinates edematous and erythematous, clear discharge sinus pressure,. Mucous membranes moist. TM pearly braun with dull light reflex bilaterally; no tragal tenderness. Oropharynx erythematous without lesions. Tonsils not present and throat without exudate, no drooling, no hoarseness, no trismus, uvula midline. NECK: Supple. No lymphadenopathy CHEST: Clear to auscultation, breath sounds equal. No wheezing, rhonchi, rales, or stridor. No respiratory distress, speaks in full sentences.dry cough,SAO2 99% on room air HEART: Regular rate and rhythm. No murmur heard. SKIN: Warm, dry, no rash. NEURO: Alert and oriented x3. PSYCH: Normal mood and affect Course Course Emergency Course: Patient is aware of diagnosis, understands and agrees to treatment plan.? Anticipatory guidance given.? Patient agrees to follow-up as directed and is aware of reasons to seek care at the emergency department. Portions of this record may have been created with voice recognition software Level of Care: Express Care Visit Vital Signs Vital signs: Vital Signs Temperature 37.0 C 02/04/24 18:57 Pulse Rate 84 02/04/24 18:57 Respiratory Rate 16 02/04/24 18:57 Blood Pressure 133/83 02/04/24 18:57 Pulse Oximetry 99 02/04/24 18:57 Oxygen Delivery Room Air 02/04/24 18:57 Temperature 37.0 C 02/04/24 18:57 Pulse Rate 84 02/04/24 18:57 Respiratory Rate 16 02/04/24 18:57 Blood Pressure 133/83 02/04/24 18:57 Pulse Oximetry 99 02/04/24 18:57 Oxygen Delivery Room Air 02/04/24 18:57 Reviewed MDM - URI/Sore Throat MDM Narrative Medical decision making narrative: Differential diagnosis considered: Giles virus, strep pharyngitis, allergic rhinitis, upper respiratory tract infection, sinusitis, rhinosinusitis, nasopharyngitis. viral pharyngitis, otitis media, otitis externa, pneumonia, bronchitis, viral cough syndrome, viral syndrome, and influenza.? Exam findings show no acute concerns or changes; patient is non-toxic appearing and is in no distress.? Patient is appropriate for outpatient treatment and follow-up. Differential Diagnosis Differential diagnosis: Likely upper respiratory infection, otitis media, sinusitis, viral infection, pharyngitis and other (strep pharyngitis) Medical Records Attestation: I reviewed the patient's medical records. Lab Data Attestation: I reviewed the patient's lab results. Lab results narrative: strep screen negative, culture sent Labs: Lab Results 02/04/24 Range/Units 18:55 POC Grp A Strep Screen Negative (Negative) Critical Care Time Critical Care Time Critical Care Time: No Discharge Plan Discharge Clinical Impression: Sinusitis Qualifiers: Sinusitis location: pansinusitis Chronicity: acute Recurrence: non-recurrent Qualified Code(s): J01.40 - Acute pansinusitis, unspecified Patient Disposition: Home, Self-Care Condition: Stable Instructions: Antibiotic Form, Sinusitis (ED) Additional Instructions: Increase fluids especially juices and water [id number] cough and cold medicine of your choice for your symptoms Zyrtec Claritin or Stephy daily Tylenol or ibuprofen for any fever pain heat to the face 20-30 minutes 4-6 times a day for pain Salt water gargles, throat lozenges or throat sprays as desired Antibiotic as directed--finish the medication If your symptoms persist, change or worsen significantly before you can contact your personal physician then please, without delay, go to the emergency department for further evaluation. Follow-up with PCP in 7-10 days or sooner if needed Follow up with PCP soon in regards to your blood pressure which is elevated above threshold for referral. Blood pressure above 120/80 may indicate pre-hypertension. 133/83 Prescriptions: New amoxicillin-pot clavulanate 875-125 mg tablet 1 tablet PO Q12H Qty: 20 0RF ibuprofen 600 mg tablet 600 mg PO TID PRN (Reason: fever or pain) Qty: 20 0RF cetirizine [Zyrtec] 10 mg tablet 10 mg PO DAILY Qty: 30 0RF No Action omeprazole 40 mg capsule,delayed release(DR/EC) 40 mg PO DAILY aripiprazole [Abilify] 5 mg tablet 5 mg PO HS citalopram 20 mg tablet 40 mg PO DAILY lorazepam 0.5 mg tablet 0.5 mg PO BID PRN (Reason: Anxiety) metronidazole 500 mg tablet Follow-up/Referrals: PHYSICIAN NOT ON STAFF,NONSTAFF [Primary Care Provider] - Time of Disposition: 19:26 Quality [place] Coma Scale Eyes: Open Verbal: Oriented and Alert Motor: Follows Commands [place] Coma Total Score: 15
[2024-02-04 19:16] LABS: EDSTREPNEGPOS1 Negative (Negative)
== END 2024-02-04 19:32 | disposition home or self-care (01) ==
PROVIDERS: Emergency Provider Registered Nurse
DX: J01.40 Acute pansinusitis, unspecified (principal); F41.9 Anxiety disorder, unspecified; F17.290 Nicotine dependence, other tobacco product, uncomplicated
CPT/HCPCS: 87081; 87880; 99213; G0463